=== PATIENT | male | born 1965 | race Caucasian/White ===

== ENCOUNTER 2016-05-04 09:00 | Emergency (ER) | payer BC, MEDICAID ==
[~2016-05-04] VITALS: Wt 76.0 kg
[2016-05-04] MEDS ORDERED: KETOROLAC 60 MG INJ IM STA (10:21)
--- NOTE | 2016-05-04 10:44 | RADRPT ---
PROCEDURE: XR Right Shoulder. CLINICAL INDICATION: Right shoulder pain. TECHNIQUE: Three views. Frontal internal rotation, frontal external rotation, and scapular Y-view . COMPARISON: No prior study is available for comparison. FINDINGS: There is no fracture or dislocation. The soft tissues are normal. Articular surfaces are intact. There is no lytic or blastic lesion. There is no radiopaque foreign body. IMPRESSION: 1. Normal images of the right shoulder. RPTAT: QQ .Edwardo Valdez MD, MD Date Time Electronically viewed and signed by .Edwardo Valdez MD, MD on 05/04/2016 10:44 .R/
[2016-05-04] MEDS ORDERED: NAPR-260 PO (10:49)
[2016-05-04] MEDS ORDERED: CYCL-319 PO (10:49)
--- NOTE | 2016-05-04 10:55 | ERD ---
ER Documentation Chief Complaint Date/Time DATE: 05/04/16 TIME: 10:52 Chief Complaint R SHOULDER PAIN FROM A GLF, 2 DAYS AGO . GOOD ROM . NO DEFORMITY HPI Patient is a 51-year-old male who has pain in his right shoulder after a ground- level fall that occurred 2 days ago. Patient states he tripped over something and landed on his right shoulder. He denies any limited range of motion and had good relief of his pain with ibuprofen. He denies any numbness or tingling. He denies any head injury or KO. He denies any preceding chest pain , dizziness, loss of balance, or headache. Pain is mild to moderate. ROS All systems reviewed and are negative except as per history of present illness. Medications Home Meds Active Scripts Naproxen* (Naprosyn*) 500 Mg Tablet, 500 MG PO BID Y for PAIN AND/OR INFLAMMATION, #30 TAB Prov:CLIFF WERNER PA-C 05/04/16 Cyclobenzaprine Hcl* (Cyclobenzaprine Hcl*) 10 Mg Tablet, 10 MG PO QHS, #20 TAB Prov:CLIFF WERNER PA-C 05/04/16 Allergies Allergies: Coded Allergies: No Known Allergy (Unverified , 02/27/14) PMhx/Soc History of Surgery: No Anesthesia Reaction: No Hx Neurological Disorder: No Hx Respiratory Disorders: No Hx Cardiac Disorders: No Hx Psychiatric Problems: No Hx Miscellaneous Medical Probl: No Hx Alcohol Use: No Hx Substance Use: No Hx Tobacco Use: No Smoking Status: Never smoker FmHx Family History: No diabetes Physical Exam Vitals Vital Signs Date Time Temp Pulse Resp B/P Pulse Ox O2 Delivery O2 Flow Rate FiO2 05/04/16 09:05 98.0 62 18 150/76 99 Physical Exam General: well developed, well nourished, alert, nontoxic, no distress Head: normocephalic, atraumatic Neck: Supple, nontender, no lymphadenopathy, no midline tenderness Respiratory: Clear to auscaultation bilaterally, speaks in full sentences, no use of accesory muscles or labored breathing, no rales, ronchi, or wheezing Cardiovascular: RRR, No murmurs GI: soft, non tender, non distended, negative murphys sign, negative mcburneys point tenderness, no cva tenderness bilaterally, no rebound or guarding Back: no midline tenderness, no step offs or bony abnormalities, sensation to light touch in tact Extremities: Right shoulder: Full range of motion active passively and against resistance, no bony abnormalities, no tenting over the clavicles, sensation to light touch intact, nontender to palpation throughout Results 24 hrs Current Medications Medications (Trade) Dose Ordered Sig/Brandie Route PRN Reason Start Time Stop Time Status Last Admin Dose Admin Ketorolac Tromethamine (Toradol) 60 mg ONCE STAT IM 05/04/16 10:21 05/04/16 10:23 DC 05/04/16 10:33 Procedures/MDM Patient has shoulder pain after mechanical fall. He is neurovascularly intact and has good range of motion and normal exam. He was given a Toradol injection and x-rays were ordered which were unremarkable. He was discharged with prescription for naproxen and Flexeril. Recommended this patient follow up with her primary care doctor within 48 hours or return to the emergency room for any worsening of symptoms. However this time I do believe there is suitable for outpatient management. I answered all their questions and they agreed with the plan and were discharged home. Departure Diagnosis: Primary Impression: Shoulder contusion Condition: Stable Patient Instructions: Shoulder Contusion Additional Instructions: Call your primary care doctor TOMORROW for an appointment during the next 1-2 days.See the doctor sooner or return here if your condition worsens before your appointment time. CLIFF WERNER PA-C May 04, 2016 10:55
== END 2016-05-04 11:04 | disposition home or self-care (01) ==
LOC: FTE 09:00
DX: S40.011A Contusion of right shoulder, initial encounter (principal); W01.0XXA Fall on same level from slipping, tripping and stumbling without subsequent striking against object, initial encounter; Y92.9 Unspecified place or not applicable
CPT/HCPCS: 73030; 96372; J1885; Z7502

== ENCOUNTER 2017-04-30 09:09 | Emergency (ER) | END 2017-04-30 13:22 | disposition home or self-care (01) ==